=== PATIENT | male | born 1980 | race Caucasian/White ===

== ENCOUNTER 2021-05-30 12:09 | Outpatient (CLI) | payer BC | END 2021-05-30 12:10 | disposition home or self-care (01) | LOC: SCSRAD 12:09 | PROVIDERS: ATTEND Family Medicine | DX: U07.1 COVID-19 (principal); J12.82 Pneumonia due to coronavirus disease 2019 | CPT/HCPCS: 71046 ==

== ENCOUNTER 2021-06-05 10:10 | Outpatient (CLI) | payer BC | END 2021-06-05 10:11 | disposition home or self-care (01) | LOC: SCSRAD 10:10 | PROVIDERS: ATTEND Family Medicine | DX: U07.1 COVID-19 (principal); J12.82 Pneumonia due to coronavirus disease 2019 | CPT/HCPCS: 71046 ==

== ENCOUNTER 2021-07-03 18:31 | Observation (INO) | payer BC ==
[2021-07-03] MEDS ORDERED: Morphine 4 MG/ML VIAL ONE ×2 (19:13→20:25)
[2021-07-03] MEDS ORDERED: Ketorolac Tromethamine 30 MG/ML VIAL ONE (19:13)
[2021-07-03 19:25] LABS: #Basophils 0.1 thou/uL (0.0-0.2); #Eosinphils 0.2 thou/uL (0.0-0.7); #Lymphocytes 2.4 thou/uL (1.20-3.40); #Neutrophils 7.5 thou/uL (1.40-6.50); %Basophils 0.9 % (0.0-1.0); %Eosinophils 1.4 % (0.0-10.0); %Lymphocytes 21.4 % (21.0-51.0); %Monocytes 8.8 % (0.0-10.0); %Neutrophils 67.4 % (42.0-75.0); Hemoglobin 15.7 g/dL (14.0-18.0); Mean Corpuscular HGB CONC 34.2 g/dL (32.0-36.0); Mean Corpuscular Hemoglobin 32.4 pg (27.0-31.0); Mean Corpuscular Volume 94.7 fL (78.0-98.0); Mean Platelet Volume 6.6 fL (7.4-10.4); Platelet Count 267 thou/uL (130-400); RBC Distribution Width 12.6 % (11.5-14.5); Red Blood Cell (RBC) Count 4.85 mill/uL (4.70-6.10); White Blood Cell (WBC) Count 11.2 thou/uL (4.8-10.8)
[2021-07-03 19:53] LABS: Anion Gap 14 mmol/L (10-20); BUN (Urea Nitrogen) 12 mg/dL (8.9-20.6); Calc. Creatinine Clearance 0 mL/min (70-130); Carbon Dioxide 24 mmol/L (22-29); Chloride 104 mmol/L (98-107); Potassium 3.7 mmol/L (3.5-5.1); Sodium 138 mmol/L (136-145)
[2021-07-03 19:54] LABS: ALT (SGPT) 17 U/L (8-55); AST (SGOT) 13 U/L (5-34); Albumin 4.1 g/dL (3.5-5.0); Alkaline Phosphatase 68 U/L (40-110); Bilirubin, Total 0.5 mg/dL (0.2-1.2); Calcium 9.4 mg/dL (7.8-10.44); Globulin 2.9 g/dL (2.4-3.5); Glucose 90 mg/dL (70-105)
[2021-07-03] MEDS ORDERED: Bupivacaine 0.5% 10 ML VIAL ONE (20:26)
[2021-07-03 22:00] LABS: CSF Source CSF; Clarity Clear (Clear); Tube # 4
[2021-07-03 22:09] LABS: CSF, Glucose 61 mg/dl (40-70); CSF, Protein 25 mg/dL (15-40)
[2021-07-03 22:38] LABS: CSF Source CSF; Clarity Hazy (Clear); Tube # 1
[2021-07-03 22:41] LABS: Cell Count Non Hematic 12 %; Lymphocytes 18 %
[2021-07-03 22:44] LABS: Segmented Neutrophils 70 %
[2021-07-03 23:08] LABS: Color Of CSF Supernatant COLORLESS (Colorless); Tube # 2; Unspun CSF Color COLORLESS (Colorless)
[2021-07-04] MEDS ORDERED: Ondansetron ODT 4 MG TAB PO PRN (01:25)
[2021-07-04] MEDS ORDERED: Ondansetron PF 4 MG/2 ML Vial IVP PRN (01:25)
[2021-07-04] MEDS ORDERED: Acetaminophen 650 MG Suppository PR PRN (01:25)
[2021-07-04] MEDS ORDERED: Dexamethasone 10 MG/ML VIAL SLOW IVP SCH (01:35)
[2021-07-04] MEDS: Morphine 4 MG/ML VIAL SLOW IVP PRN ×3 (02:04→10:39)
[2021-07-04 03:00] VITALS: BMI 27.6
[2021-07-04 04:53] LABS: #Eosinphils 0.1 thou/uL (0.0-0.7); #Lymphocytes 1.9 thou/uL (1.20-3.40); #Monocytes 0.7 thou/uL (0.11-0.59); #Neutrophils 4.5 thou/uL (1.40-6.50); %Basophils 0.6 % (0.0-1.0); %Eosinophils 1.8 % (0.0-10.0); %Lymphocytes 26.4 % (21.0-51.0); %Neutrophils 62.2 % (42.0-75.0); Hemoglobin 13.8 g/dL (14.0-18.0); Mean Corpuscular HGB CONC 33.2 g/dL (32.0-36.0); Mean Corpuscular Volume 96.5 fL (78.0-98.0); Mean Platelet Volume 6.8 fL (7.4-10.4); Platelet Count 216 thou/uL (130-400); RBC Distribution Width 12.8 % (11.5-14.5); Red Blood Cell (RBC) Count 4.31 mill/uL (4.70-6.10); White Blood Cell (WBC) Count 7.3 thou/uL (4.8-10.8)
[2021-07-04 05:09] LABS: Anion Gap 10 mmol/L (10-20); BUN (Urea Nitrogen) 13 mg/dL (8.9-20.6); Calc. Creatinine Clearance 166 mL/min (70-130); Calcium 8.7 mg/dL (7.8-10.44); Carbon Dioxide 24 mmol/L (22-29); Chloride 106 mmol/L (98-107); Glucose 85 mg/dL (70-105); Potassium 4.1 mmol/L (3.5-5.1); Sodium 136 mmol/L (136-145)
[2021-07-04] MEDS: Acetaminophen 325 MG TAB PO PRN ×2 (05:48→18:39)
[2021-07-04] MEDS ORDERED: Morphine 4 MG/ML VIAL SLOW IVP PRN (11:42)
[2021-07-04 12:19] LABS: SARS-CoV-2 PCR by NAA Not Detected (NotDetected)
[2021-07-04 16:31] VITALS: BP 149/78; TEMP 97.8
[2021-07-07] MEDS ORDERED: FLU VACC QS2021-22(6MOS UP)/PF 60 MCG/0.5 ML SYRINGE IM ONE (09:00)
[2021-07-07] MEDS ORDERED: Prevnar 13-Val Conj/PF 0.5 ML SYRINGE IM ONE (09:00)
== END 2021-07-04 18:50 | disposition home or self-care (01) ==
LOC: ERS 18:31 → 3SE 23:50
PROVIDERS: ADMIT Student in an Organized Health Care Education/Training Program; ATTEND Hospitalist
DX: M25.511 Pain in right shoulder (principal); M25.552 Pain in left hip; M25.531 Pain in right wrist; M25.532 Pain in left wrist; M25.561 Pain in right knee; M25.562 Pain in left knee; D72.829 Elevated white blood cell count, unspecified; F17.200 Nicotine dependence, unspecified, uncomplicated; G61.0 Guillain-Barre syndrome; Z86.16 Personal history of COVID-19; Z88.0 Allergy status to penicillin; Z20.822 Contact with and (suspected) exposure to COVID-19
CPT/HCPCS: 36415; 62270; 70450; 71045; 80048; 80053; 82945; 84157; 84484; 85025; 85060; 86140; 87070; 87205; 89051; 93005; 94760; 96374; 96375; 96376; G0378; J1885; J2270; J3490; U0003; U0005